=== PATIENT | male | born 1955 | race Caucasian/White ===

== ENCOUNTER → 2021-04-08 00:14 | Outpatient (CLI) | payer OTHER, SELFPAY ==
[2021-04-15 19:59] LABS: SARS-CoV-2 RNA PCR Negative
== END ==
PROVIDERS: Visit Provider Urology
DX: Z01.812 Encounter for preprocedural laboratory examination (principal); Z20.822 Contact with and (suspected) exposure to COVID-19
CPT/HCPCS: C9803; U0003; U0005

== ENCOUNTER 2021-04-16 11:15 | Outpatient (CLI) | payer OTHER, SELFPAY ==
--- NOTE | 2021-04-16 11:30 | ECG_ITS ---
Measurements Intervals Raymond Rate: 74 P: 46 NV: 144 QRS: 4 QRSD: 90 T: 36 QT: 365 QTc: 405 Interpretive Statements SINUS RHYTHM LEFT ATRIAL ENLARGEMENT POOR R WAVE PROGRESSION, ANTERIOR LEADS BORDERLINE ECG Electronically Signed On 04-16-2021 15:42:32 CDT by Leroy Alcala D.O.
== END 2021-04-16 11:16 | disposition home or self-care (01) ==
PROVIDERS: Visit Provider Urology
DX: E78.00 Pure hypercholesterolemia, unspecified (principal); Z01.818 Encounter for other preprocedural examination; R94.31 Abnormal electrocardiogram [ECG] [EKG]
CPT/HCPCS: 93005

== ENCOUNTER 2021-04-18 01:07 | Day surgery (SDC) | payer OTHER, SELFPAY ==
[2021-04-05 15:38] VITALS: BMI 29.0
--- NOTE | 2021-04-15 10:45 | PC.NURSE ---
STATES NO CHANGE IN HEALTH HX SINCE LAST INTERVIEW ON 04/05/21
[2021-04-18] VITALS (9 sets, daily range): BP systolic 128–165; BP diastolic 81–94; PULSE 60–79; RESP 10–16; TEMP 36.2–37.2; O2SAT 92–100
--- NOTE | 2021-04-18 06:44 | WPDHPUPDATE1 ---
History and Physical Update Update Date/Time: 04/18/21 06:44 History and Physical has been reviewed, including an updated exam of the patient. There are NO changes in the patient's condition. Risks, benefits, and alternatives have been discussed and questions answered. Patient agrees to proceed with procedure.
[2021-04-18] MEDS: LACTATED RINGERS 1,000 ML 30 ML IV CONT ×2 (09:46→11:29)
--- NOTE | 2021-04-18 10:27 | P.PNAN_ITS ---
Anes - Initial Pre Proc Eval Procedure: Operation Date: 04/18/21 09:45 Proposed Procedures p Left Hydrocelectomy with Flexible Cystoscopy - Sergey Dillon MD Date/Time: 04/18/21 10:27 Surgeon: Sergey Dillon MD Pre Op Diagnosis: gross hematuria, left hydrocele Patient Data Age: 65 Gender: M Height: 1.65 m Weight: 80 kg Last Vital Signs Temp 98.9 F 04/18/21 09:03 Pulse 76 04/18/21 09:03 Resp 16 04/18/21 09:03 BP 146/81 H 04/18/21 09:03 Pulse Ox 97 04/18/21 09:03 Allergies Allergy/AdvReac Type Severity Reaction Status Date / Time No Known Allergies Allergy Verified 04/18/21 09:29 Home Medications Medication Instructions Recorded Confirmed Type finasteride 5 mg PO DAILY 04/05/21 04/18/21 History multivitamin [Multiple Vitamin] 1 tablet PO EVERY OTHER DAY 04/05/21 04/18/21 History rosuvastatin 20 mg PO DAILY 04/05/21 04/18/21 History saw-vit E-sod ljx-ckz-retu-pyg 1 tablet PO DAILY 04/05/21 04/18/21 History [Prostate Health] terazosin 1 mg PO HS 04/05/21 04/18/21 History terazosin 2 mg PO QAM 04/05/21 04/18/21 History vit C,B-Rf-zypfw-lutein-zeaxan 1 tablet PO DAILY 04/05/21 04/18/21 History [PreserVision AREDS-2] Patient hx anesthesia problems: none Family hx anesthesia problems: none Results Review: All pre-operative results and documents have been reviewed as part of the pre-operative evaluation. [facility], [facility] Past Medical History Medical History (Updated 04/18/21 @ 10:21 by Geo Richardson MD) Hyperlipidemia Social History Social History Smoking status: Never smoker Substance use: never Living arrangements: with family Additional living arrangements comments: Spiritual care concerns: No Anes - Eval Final PreProcedure Day of Procedure 04/18/21 10:27 Patient weight: obese Heart: regular rate and rhythm Lungs: clear to auscultation Airway: Mallampati scale class II Neurological: alert and oriented Last oral intake: >/= 8 hours ASA classification: II Emergent: no Anesthetic plan: proceed Anesthesia type and monitoring: general LMA and standard monitoring Results Review: All pre-operative results and documents have been reviewed as part of the pre-operative evaluation. Informed Consent: The patient's anesthetic plan and its attendant risks and benefits were discussed with the patient/family/POA. Questions were solicited and answers provided to the satisfaction of the patient/family/POA.
[2021-04-18] MEDS: ceFAZolin 2 GM/D5W 50 ML 2 GM/50 ML BAG IVPB (10:39)
--- NOTE | 2021-04-18 11:17 | W.PM.PROC2 ---
Procedure Note - Detailed Date of Procedure 04/18/21 Pre-op Diagnosis Gross hematuria, left hydrocele Post-op Diagnosis same Procedure Performed 1. Left hydrocelectomy. 2. Flexible cystoscopy. Surgeon Sergey Dillon MD Anesthesia general Description of Procedure The patient was brought to the operative suite where he was prepped and draped in routine sterile fashion while in a supine position after the uneventful induction of a general LMA anesthetic. An incision was made in the median of the scrotum and dissection was carried into the left tunica vaginalis. Clear, straw-colored fluid was drained. The testicle was examined and found to be both visibly and palpably normal. The tunica was everted in a bottle-neck fashion using a running 4-0 chromic. The testicle was restore returned to an orthotopic positioned. The dartos muscle was closed with a running 4-0 chromic and the skin was likewise closed with a running 4-0 chromic. Flexible cystoscopy was then undertaken with a 16 F flexible cystoscope. There was no urethral strictures. Has significant lateral lobe hyperplasia without median lobe enlargement. Prostatic urethra measures 2.0-2.5 cm. Bladder mucosa is normal. There was no intravesical foreign body or neoplasm. He has a single orthotopic ureteral orifice with clear efflux bilaterally. Estimated blood loss throughout this procedure was 0cc . Patient tolerated the procedure well and was taken to the recovery room in good condition. Drains No Packing No Pathology none sent Complications No immediate complications Condition stable Disposition PACU
[2021-04-18] MEDS: LIDO 1%/EPINEPHRINE 1:100,000 50 ML VIAL 10 ML INFILTRATE (11:23)
[2021-04-18] MEDS: fentaNYL CITRATE INJ (*CRX) 100 MCG/2 ML VIAL 25 MCG IV PUSH ×3 (11:49→12:24)
--- NOTE | 2021-04-18 12:10 | SUR.PHASEI ---
Simple mask removed at 1209.
[2021-04-18] MEDS: oxyCODONE HCL (*CRX) 5 MG TAB IR PO (12:52)
[2021-04-18] MEDS: ONDANSETRON INJ 4 MG/2 ML VIAL IV PUSH (12:54)
== END 2021-04-18 13:40 | disposition home or self-care (01) ==
PROVIDERS: Visit Provider Urology
PROC: (CPT 55040; principal; 2021-04-18 09:45)
DX: N43.3 Hydrocele, unspecified (principal); R31.0 Gross hematuria; N40.0 Benign prostatic hyperplasia without lower urinary tract symptoms; E78.5 Hyperlipidemia, unspecified; E66.9 Obesity, unspecified; Z68.29 Body mass index [BMI] 29.0-29.9, adult
CPT/HCPCS: 52000; 55060; 93005; A9270; C9803; J0690; J1100; J2250; J2405; J2704; J3010; J7030; J7120; U0003; U0005